=== PATIENT | male | born 1975 | race Caucasian/White ===

== ENCOUNTER → 2025-07-13 | Outpatient (BNVA) | payer OTHER, SELFPAY | END | disposition home or self-care (01) | PROVIDERS: PCP Family Medicine; Referring Provider Family Medicine; Visit Provider Urology | DX: N47.1 Phimosis (principal); N40.0 Benign prostatic hyperplasia without lower urinary tract symptoms; E11.9 Type 2 diabetes mellitus without complications | CPT/HCPCS: 81003; 99202; G0463 ==

== ENCOUNTER → 2025-09-06 | Outpatient (CLI) | payer OTHER, SELFPAY ==
[2025-09-04 15:29] VITALS: BMI 22.7
--- NOTE | 2025-09-06 06:00 | EKG_ITS ---
[facility] Test Date: 2025-09-06 Pat Name: SPEEDY BLUE Department: Room: - Gender: Male Manager Civil: ROGELIO : 1975 Requested By: Garcia Topmkins Order Number: [id number] Reading MD: Garcia Tompkins Measurements Intervals Robbins Rate: 62 P: 35 KS: 175 QRS: 51 QRSD: 134 T: 35 QT: 404 QTc: 412 Interpretive Statements SINUS RHYTHM INTRAVENTRICULAR CONDUCTION DELAY [130+ ms QRS DURATION] No previous ECG available for comparison /[email or web address]/[id number]
== END | disposition home or self-care (01) ==
LOC: SEKG 09-07 07:53
PROVIDERS: Referring Provider Urology; Visit Provider Urology
DX: Z01.810 Encounter for preprocedural cardiovascular examination (principal); N47.1 Phimosis
CPT/HCPCS: 80053; 93005